=== PATIENT | male | born 1985 | race Caucasian/White ===

== ENCOUNTER 2016-04-27 07:27 | Day surgery (SDC) ==
[2016-03-16 13:47] VITALS: BMI 21.9
[2016-04-27] MEDS ORDERED: VERSED ONE (09:15)
[2016-04-27] MEDS ORDERED: DIPRIVAN 20 ML VIAL IVP ONE (09:15)
[2016-04-27 10:26] VITALS: BP 134/82; TEMP 98
--- NOTE | 2016-04-28 09:10 | OP ---
INDICATIONS FOR PROCEDURE: 30-year-old gentleman presents for colonoscopy. He is having intermittent abdominal cramping and diarrhea. He is scheduled for colonoscopy exam. He does tell me that Bentyl p.r.n. has helped his symptoms. MEDICATIONS: SEE ANESTHESIA NOTES. PROCEDURE: COLONOSCOPY. REPORT: The risks, benefits, alternatives and limitations were discussed in detail with the patient. Informed consent was obtained. After adequate sedation was achieved, a digital rectal exam revealed good tone, no masses. The colonoscope was introduced into the rectum and advanced under direct visual guidance to the cecum. The cecum was identified by the appendiceal orifice and IC valve. I was able to intubate the distal terminal ileum for 12 cm. I then slowly withdrew the scope. The ileal mucosa appeared unremarkable. The colonic mucosa was examined on forward and retroflex views looking on the proximal and distal side of folds and flexures as best as possible. The colonic mucosa was unremarkable its entire length. The prep was good. The withdrawal time was 6 minutes and 42 seconds. The patient tolerated the procedure well with stable vital signs and pulse oximetry throughout. IMPRESSION: 1. Normal colonoscopy including terminal ileum. RECOMMENDATIONS: 1. High fiber diet. 2. Continue p.r.n. Bentyl. 3. I recommend he continue with a healthy lifestyle and what I have discussed with him as a dull, boring routine. 4. Will see him back in the office as needed and he will continue to followup with Primary Care. cc: Dr. Reyna NIXON
== END 2016-04-27 11:30 | disposition home or self-care (01) ==
LOC: SURG 07:27
PROVIDERS: ATTEND Internal Medicine Gastroenterology
DX: R19.7 Diarrhea, unspecified (principal); R10.9 Unspecified abdominal pain

== ENCOUNTER 2016-08-26 11:01 | Emergency (ER) | payer OTHER ==
[2016-08-26 11:07] VITALS: BP 133/92; TEMP 99.4; BMI 22.0
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
== END 2016-08-26 12:12 | disposition home or self-care (01) ==
LOC: ED 11:01
DX: S90.02XA Contusion of left ankle, initial encounter (principal); W22.8XXA Striking against or struck by other objects, initial encounter
CPT/HCPCS: 99283

== ENCOUNTER 2016-11-16 16:07 | Emergency (ER) ==
[2016-11-16 16:24] VITALS: BP 146/87; TEMP 98.1; BMI 21.7
[2016-11-16 17:03] LABS: BASOPHILS # (AUTO) 0.1 K/uL (0-0.2); EOSINOPHILS # (AUTO) 0.1 K/ul (0.0-0.7); EOSINOPHILS % (AUTO) 1.6 % (0.0-7.0); HEMATOCRIT 44.8 % (42.0-52.0); HEMOGLOBIN 15.8 g/dl (14.0-18.0); IMMATURE GRANULOCYTE % (AUTO) 0.2 % (0.0-5.0); LYMPHOCYTES # (AUTO) 1.2 K/uL (0.60-3.4); LYMPHOCYTES % (AUTO) 19.3 (10.0-50.0); MEAN CORPUSCULAR HEMOGLOBIN 31.4 pg (27.0-31.0); MEAN CORPUSCULAR HGB CONC 35.3 (31.8-35.4); MEAN CORPUSCULAR VOLUME 89.1 fl (80.0-94.0); MONOCYTES # (AUTO) 0.8 K/uL (0.4-2.0); MONOCYTES % (AUTO) 12.7 (0-10); NEUTROPHILS % (AUTO) 65.2; PLATELET COUNT 149 10^3/uL (140-440); RED BLOOD COUNT 5.03 10^6/ul (4.70-6.10); WHITE BLOOD COUNT 6.07 K/ul (4.2-10.2)
[2016-11-16] MEDS: NORCO 10-325 PO STA (17:12)
[2016-11-16 17:23] LABS: ALBUMIN 4.4 g/dL (3.4-5.0); ALBUMIN/GLOBULIN RATIO 1.83; BILIRUBIN,TOTAL 1.13 mg/dL (0.00-1.20); BUN/CREATININE RATIO 6.09; CALCIUM 9.8 mg/dL (8.2-10.2); CREATININE 0.82 mg/dL (0.60-1.10); TOTAL PROTEIN 6.8 g/dL (6.4-8.2)
[2016-11-16 17:24] LABS: BILIRUBIN,URINE 1+ (NEGATIVE); KETONES,URINE Trace (NEGATIVE); LEUKOCYTE ESTERASE ,URINE Negative (NEGATIVE); NITRITE,URINE Negative (NEGATIVE); PH,URINE 8.5 (5-9); PROTEIN,URINE 1+ (NEGATIVE); URINE, BLOOD Negative (NEGATIVE)
[2016-11-16 17:27] LABS: ADD URINE MICROSCOPIC YES
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
[2016-11-16 17:30] LABS: BACTERIA,URINE TRACE (NOT PRESENT)
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
[2016-11-16] MEDS ORDERED: NORCO 10-325 PO STA (18:36)
[2016-11-16] MEDS ORDERED: BENADRYL IM STA (18:37)
[2016-11-16] MEDS ORDERED: DECADRON 4 MG/ML SDV IM STA (18:37)
== END 2016-11-16 18:00 | disposition home or self-care (01) ==
LOC: ED 16:07
DX: M54.5 Low back pain (principal); V89.2XXA Person injured in unspecified motor-vehicle accident, traffic, initial encounter
CPT/HCPCS: 36415; 80053; 81001; 85025; 99283

== ENCOUNTER 2017-02-22 10:16 | Emergency (ER) ==
[2017-02-22 10:21] VITALS: BP 141/88; TEMP 98.8; BMI 21.4
--- NOTE | 2017-02-22 10:31 | ED.PDOC ---
General ED Provider: Dr. GWEN YANES JR Chief Complaint: Sore Throat Stated Complaint: woke up with sore throat this am--had nasal sx and head congestion--sl fever--[End]98.8 94 20 141/88 08/18. sudafed--adilsonte Time Seen by Physician: 10:31 Mode of Arrival: Walk-In Information Source: Patient Exam Limitations: No limitations [facility] and Triage Documentation Reviewed and Agree: No Review of Systems - Review Of Systems Constitutional: Reports: Malaise, Weakness Eyes: Reports: No symptoms Ears, Nose, Mouth, Throat: Reports: Throat pain Respiratory: Reports: Cough Cardiac: Reports: No symptoms GI: Reports: No symptoms : Reports: No symptoms Musculoskeletal: Reports: Muscle pain Skin: Reports: No symptoms Neurological: Reports: No symptoms Hematologic/Lymphatic: Reports: Swollen glands All Other Systems: Other Past Medical History - Past Medical History Previously Healthy: Yes Endocrine: Reports: None Cardiovascular: Reports: None Respiratory: Reports: None Hematological: Reports: None Gastrointestinal: Reports: None Genitourinary: Reports: None Neuro/Psych: Reports: Anxiety, Depression Musculoskeletal: Reports: None Cancer: Reports: None - Surgical History General Surgical History: Reports: Orthopedic (knee surg), Unknown (vasectomy) - Family History Family History: Reports: Other (5yr old ill with cough using prednisone 4month old then ill now father of children) - Social History Smoking Status: Former smoker Hx Substance Use: No Alcohol Screening: None Physical Exam - Physical Exam Appearance: Ill-appearing Ill-appearing: Mild Pain Distress: Mild Eyes: SANGITA, EOMI, Conjunctiva clear ENT: Ears normal, Nose normal, Erythema Neck: Supple Respiratory: Airway patent, Breath sounds clear, Breath sounds equal, Respirations nonlabored Cardiovascular: RRR, Pulses normal, No rub, No murmur GI/: Soft, Nontender, No masses, Bowel sounds normal, No Organomegaly Musculoskeletal: Normal strength, ROM intact, No edema, No calf tenderness Skin: Warm, Dry, Normal color Neurological: Sensation intact, Motor intact, Reflexes intact, Cranial nerves intact, Alert, Oriented Psychiatric: Affect appropriate, Mood appropriate Critical Care Note - Critical Care Note Total Time (mins): 0 Course - Course Vital Signs: Temp Pulse Resp BP Pulse Ox 02/22/17 10:16 98.8 F 94 H 20 141/88 H 94 L Departure - Departure Time of Disposition: 11:28 Disposition: HOME SELF-CARE Discharge Problem: Sore throat symptom Instructions: Pharyngitis (ED), Strep Throat (ED) Condition: Good Pt referred to PMD for follow-up: Yes Additional Instructions: Home until no fever for 24 hours expect resolution in two to three days avoid others for first 24 hours of antibiotics then should not be infectious strep test is incomplete return if worsening may use NSAIDS for pain and fever (Naprosyn aleve or Advil) increase fluids Prescriptions: Naproxen [Naprosyn] 500 mg PO Q12HR PRN #30 tablet PRN Reason: PAIN Cephalexin [Keflex] 500 mg PO QID #40 capsule Prednisone 20 mg PO DIRECTED #50 tablet Allergies/Adverse Reactions: Allergies No Known Allergies Allergy (Verified 02/22/17 10:22) Home Medications: Ambulatory Orders Cephalexin [Keflex] 500 mg PO QID #40 capsule 02/22/17 Naproxen [Naprosyn] 500 mg PO Q12HR PRN #30 tablet 02/22/17 Prednisone 20 mg PO DIRECTED #50 tablet 02/22/17
[2017-02-22 11:16] LABS: FLU INTERNAL QC INTERNAL QC VALID; RAPID FLU A NEGATIVE (NEGATIVE); RAPID FLU B NEGATIVE (NEGATIVE)
== END 2017-02-22 11:53 | disposition home or self-care (01) ==
LOC: ED 10:16
DX: J02.9 Acute pharyngitis, unspecified (principal)
CPT/HCPCS: 87651; 87804; 87880; 99283

== ENCOUNTER 2018-04-05 11:10 | Emergency (ER) ==
[2018-04-05 11:15] VITALS: BP 138/82; TEMP 98; BMI 21.1
[2018-04-05] MEDS ORDERED: DUONEB NEB STA (11:29)
[2018-04-05] MEDS ORDERED: DECADRON 4 MG/ML SDV IM STA (11:30)
[2018-04-05] MEDS ORDERED: ZITHROMAX PO STA (11:32)
[2018-04-05] MEDS ORDERED: TUSSIONEX PO STA (11:32)
[2018-04-05] MEDS ORDERED: DECADRON 4 MG/ML SDV ONE (11:50)
--- NOTE | 2018-04-05 12:17 | ED.PDOC ---
General ED Provider: Dr. ELIAS WILSON Chief Complaint: Respiratory Complaint Stated Complaint: FLU LIKE SYMTOMS AND WEAKNESS Time Seen by Physician: 11:17 (FLORENCIA PRESENT AT ALL TIMES LATER SEEN WITH HIS NURSE ) Mode of Arrival: Walk-In Information Source: Patient Exam Limitations: No limitations [facility] Nursing and Triage Documentation Reviewed and Agree: Yes Does patient meet sepsis criteria?: No (SMOKES PRESENTLY ) System Inflammatory Response Syndrome: Not Applicable (NO SHORTNESS OF BREATH ON ARRIVAL) Sepsis Protocol: For patient's 13 years and over: Temp is 96.8 and below OR 101 and greater Pulse >90 BPM Resp >20/minute Acutely Altered Mental Status Are patient's symptoms suggestive of a new infection, such as: -Pneumonia -Skin, Soft Tissue -Endocarditis -UTI -Bone, Joint Infection -Implantable Device -Acute Abdominal Infection -Wound Infection -Meningitis -Blood Stream Catheter Infection -Unknown Respiratory Complaint Exam - Respiratory Complaint/Exam Onset/Duration: 2 DAYS Symptoms Are: Still present (COUGH ) Timing: Intermittent Initial Severity: Mild Current Severity: Mild Location: Nose, Throat, Chest Character: Reports: Non-productive cough, Dry cough Aggravating: Reports: URI Alleviating: Reports: Spontaneous resolution Associated Signs and Symptoms: Reports: Chills, Wheezing, URI, Nasal congestion , Sore throat. Denies: Rapid breathing, Dyspnea, Fever, Chest pain, Pleuritic chest pain, Hemoptysis, Dizziness, Calf pain, Calf swelling, Edema, Hoarseness, Sinus discomfort, Vomiting, Weight loss, Decreased oral intake, Increased thirst , Increased appetite, Increased urination Related Surgical History: Reports: None Pulmonary Embolism Risk Factors: Smoking Cardiac Risk Factors: Reports: Smoking Tuberculosis Risk Factors: Reports: None Status Asthmaticus Risk Factors: Reports: None Home Oxygen Use: No Recent Stress Test: No Recent Echo/LV Function: No Current Antibiotic Use: No Current Asthma Medication Use: No Respiratory Distress: None Inadequate Respiratory Effort: No Dysphagia Present: No Stridor Present: No JVD Present: No Accessory Muscle Use: No Retractions: Not Present Diminished Breath Sounds: No Sinus Tenderness: None Grunting Respirations: No Kussmaul Respirations: No Differential Diagnoses: Pneumonia, Bronchitis, URI, Influenza Non-Traumatic Chest Pain Syncope: EKG Performed Review of Systems - Review Of Systems Constitutional: Reports: Chills, Malaise, Weakness Eyes: Reports: No symptoms Ears, Nose, Mouth, Throat: Reports: No symptoms Respiratory: Reports: Cough, Wheezing Cardiac: Reports: No symptoms GI: Reports: No symptoms : Reports: No symptoms Musculoskeletal: Reports: No symptoms Skin: Reports: No symptoms Neurological: Reports: No symptoms Endocrine: Reports: No symptoms Hematologic/Lymphatic: Reports: No symptoms All Other Systems: Reviewed and Negative Past Medical History - Past Medical History Previously Healthy: Yes Endocrine: Reports: None Cardiovascular: Reports: None Respiratory: Reports: None Hematological: Reports: None Gastrointestinal: Reports: None Genitourinary: Reports: None Neuro/Psych: Reports: Anxiety, Depression Musculoskeletal: Reports: None Cancer: Reports: None - Surgical History General Surgical History: Reports: Orthopedic (knee surg), Unknown (vasectomy) - Family History Family History: Reports: Other (7yr old ill with cough using prednisone 4month old then ill now father of children) - Social History Smoking Status: Current every day smoker Hx Substance Use: No Alcohol Screening: None Physical Exam - Physical Exam Appearance: Well-appearing, No pain distress, Well-nourished Eyes: SANGITA, EOMI, Conjunctiva clear ENT: Ears normal, Nose normal, Oropharynx normal Respiratory: Airway patent, Breath sounds clear, Breath sounds equal, Respirations nonlabored Cardiovascular: RRR, Pulses normal, No rub, No murmur GI/: Soft, Nontender, No masses, Bowel sounds normal, No Organomegaly Musculoskeletal: Normal strength, ROM intact, No edema, No calf tenderness Skin: Warm, Dry, Normal color Neurological: Sensation intact, Motor intact, Reflexes intact, Cranial nerves intact, Alert, Oriented Psychiatric: Affect appropriate, Mood appropriate Re-Evaluation - Re-Evaluation Time of Re-Evaluation: 12:17 (NO RESPIRATORY DISTRESS NO CHEST PAIN NO NEUROLOGICAL DEFICITS) Status: Improved Vital Signs Stable: Yes Pain Level: 0 Appearance: NAD Lungs: Clear Skin: Warm and Dry Neuro: Alert and Oriented X3 CV: RRR - Re-Evaluation Time of Re-Evaluation: 12:57 (LAB REPORTS GIVEN TO THE PT WITH LUDA PRESENT DISCUSSED ALL LABS COPIES GIVEN ) Status: Improved Vital Signs Stable: Yes Pain Level: 0 Appearance: NAD Skin: Warm and Dry Neuro: Alert and Oriented X3 CV: RRR Critical Care Note - Critical Care Note Total Time (mins): 0 Course - Course Hematology/Chemistry: 04/05/18 11:40 04/05/18 11:40 Orders, Labs, Meds: Lab Review 04/05/18 04/05/18 04/05/18 11:31 11:40 11:40 WBC 7.65 RBC 5.19 Hgb 16.5 Hct 47.4 MCV 91.3 MCH 31.8 H MCHC 34.8 RDW Coeff of Emiliano 12.6 Plt Count 193 Immature Gran % (Auto) 0.1 Neut % (Auto) 57.1 Lymph % (Auto) 31.4 [place] % (Auto) 7.8 Eos % (Auto) 2.6 Baso % (Auto) 1.0 Immature Gran # (Auto) 0.0 Neut # (Auto) 4.4 Lymph # (Auto) 2.4 [place] # (Auto) 0.6 Eos # (Auto) 0.2 Baso # (Auto) 0.1 Puncture Site Lrad O2 Saturation 96.0 ABG pH 7.350 ABG pCO2 37.7 ABG pO2 89.0 ABG HCO3 20.8 L ABG Total CO2 22 ABG Base Excess -5 L Justice Test + FiO2 % 21.0 Sodium 142.2 Potassium 3.90 Chloride 110.4 H Carbon Dioxide 21.4 L Anion Gap 14.30 BUN 5.8 L Creatinine 0.63 Estimated GFR (MDRD) 150.00 BUN/Creatinine Ratio 9.20 Glucose 95.7 Lactic Acid Calcium 8.80 Total Bilirubin 0.42 AST 85.2 H ALT 53.8 H Alkaline Phosphatase 55.8 Total Protein 7.52 Albumin 4.69 Globulin 2.83 Albumin/Globulin Ratio 1.65 Procalcitonin 04/05/18 04/05/18 11:40 11:40 WBC RBC Hgb Hct MCV MCH MCHC RDW Coeff of Emiliano Plt Count Immature Gran % (Auto) Neut % (Auto) Lymph % (Auto) [place] % (Auto) Eos % (Auto) Baso % (Auto) Immature Gran # (Auto) Neut # (Auto) Lymph # (Auto) [place] # (Auto) Eos # (Auto) Baso # (Auto) Puncture Site O2 Saturation ABG pH ABG pCO2 ABG pO2 ABG HCO3 ABG Total CO2 ABG Base Excess Justice Test FiO2 % Sodium Potassium Chloride Carbon Dioxide Anion Gap BUN Creatinine Estimated GFR (MDRD) BUN/Creatinine Ratio Glucose Lactic Acid 2.76 H Calcium Total Bilirubin AST ALT Alkaline Phosphatase Total Protein Albumin Globulin Albumin/Globulin Ratio Procalcitonin < 0.05 Orders Category Date Time Status ABG DRAW REQUEST Stat CARDIO 04/05/18 11:31 Completed EKG-(ED ONLY) Stat CARDIO 04/05/18 11:30 Completed NEBULIZER TREATMENT Stat CARDIO 04/05/18 11:29 Completed ABG Stat LAB 04/05/18 11:31 Completed BLOOD CULTURE (ED ONLY) Stat LAB 04/05/18 11:40 Received CBC W/ AUTO DIFF Stat LAB 04/05/18 11:40 Completed COMPREHENSIVE METABOLIC PANEL Stat LAB 04/05/18 11:40 Completed HEPATITIS PANEL, ACUTE Stat LAB 04/05/18 11:40 Received LACTIC ACID Stat LAB 04/05/18 11:40 Completed PROCALCITONIN Stat LAB 04/05/18 11:40 Completed Azithromycin [Zithromax] MEDS 04/05/18 11:32 Discontinued 1,000 mg PO ONCE STA Ceftriaxone Sodium [Rocephin] MEDS 04/05/18 12:19 Discontinued 1 gm IM ONCE STA Dexamethasone 4 mg/ml Inj [Decadron 4 mg/ml Sdv] MEDS 04/05/18 11:50 Discontinued 4 mg .ROUTE .STK-MED ONE Dexamethasone 4 mg/ml Inj [Decadron 4 mg/ml Sdv] MEDS 04/05/18 11:30 Discontinued 8 mg IM ONCE STA Hydrocodone/Chlorphen Polis [Tussionex] MEDS 04/05/18 11:32 Discontinued 5 ml PO ONCE STA Ipratropium/Albuterol Neb [Duoneb] MEDS 04/05/18 11:29 Discontinued 1 vial NEB ONCE STA Lidocaine HCl/Pf [Lidocaine HCl 1% Sdv] MEDS 04/05/18 12:19 Discontinued 2.1 ml IM ONCE STA CHEST, 2 VIEWS PA & LAT Stat RADS 04/05/18 11:28 Completed Medications Discontinued Medications Generic Name Dose Route Start Last Admin Trade Name Freq PRN Reason Stop Dose Admin Albuterol/Ipratropium 1 vial 04/05/18 11:29 04/05/18 11:40 Duoneb NEB 04/05/18 11:30 1 vial ONCE STA Administration Azithromycin 1,000 mg 04/05/18 11:32 04/05/18 11:48 Zithromax PO 04/05/18 11:33 1,000 mg ONCE STA Administration Ceftriaxone Sodium 1 gm 04/05/18 12:19 04/05/18 12:47 Rocephin IM 04/05/18 12:20 1 gm ONCE STA Administration Chlorphenir/Hydrocodone Polistirex 5 ml 04/05/18 11:32 04/05/18 11:48 Tussionex PO 04/05/18 11:33 5 ml ONCE STA Administration Dexamethasone Sodium Phosphate 8 mg 04/05/18 11:30 04/05/18 11:48 Decadron 4 Mg/Ml Sdv IM 04/05/18 11:31 8 mg ONCE STA Administration Lidocaine HCl 2.1 ml 04/05/18 12:19 04/05/18 12:48 Lidocaine Hcl 1% Sdv IM 04/05/18 12:20 2.1 ml ONCE STA Administration Vital Signs: Temp Pulse Resp BP Pulse Ox 04/05/18 11:12 98.0 F 112 H 20 138/82 98 Departure - Departure Time of Disposition: 13:00 Disposition: HOME SELF-CARE Discharge Problem: Viral syndrome, Upper respiratory infection with cough and congestion Instructions: Viral Syndrome (ED) Condition: Good Pt referred to PMD for follow-up: Yes IPMP verified?: No Additional Instructions: Please call your Family Physician as soon as possible to schedule a follow-up appointment. YOUR LIVER ENZYMES ARE SLIGHTLY ELEVATED , PLEASE HAVE THEM RECHECKED BY YOUR DOCTOR. A HEPATITIS PANEL TEST IS DONE WELL BUT, THE RESULTS WONT BE AVILABLE FOR 4 DAYS PLEASE ASK YOUR PROVIDER TO CHECK THE ACUTE HEPATITIS PANEL RESULTS THROUGH [facility]. DEPT Allergies/Adverse Reactions: Allergies No Known Allergies Allergy (Verified 02/22/17 10:22) Home Medications: Ambulatory Orders 1 [No Reported Medications] 04/05/18 Disposition Discussed With: Patient, Family
[2018-04-05] MEDS ORDERED: LIDOCAINE HCL 1% SDV IM STA (12:19)
[2018-04-05] MEDS ORDERED: ROCEPHIN IM STA (12:19)
--- NOTE | 2018-04-05 12:20 | DI ---
EXAM: Chest two view, frontal and lateral views. HISTORY: Cough. COMPARISON: 03/16/2016. FINDINGS: The heart size is normal. There is no pulmonary vascular congestion. The lungs are clear . No pleural effusion or pneumothorax is seen. No acute osseous abnormality identified. Since the prior study, there has been no significant interval change. IMPRESSION: No acute cardiopulmonary process.
== END 2018-04-05 13:00 | disposition home or self-care (01) ==
LOC: ED 11:10
DX: J06.9 Acute upper respiratory infection, unspecified (principal); R74.8 Abnormal levels of other serum enzymes; F17.210 Nicotine dependence, cigarettes, uncomplicated
CPT/HCPCS: 36415; 80053; 80074; 82803; 83605; 84145; 85025; 87040; 93005; 93010; 94640; 96372; 99283

== ENCOUNTER 2018-04-05 20:40 | Emergency (ER) ==
[2018-04-05 20:50] VITALS: BMI 20.9
[2018-04-05] MEDS ORDERED: LACTATED RINGERS 1,000 ML IV STA (21:07)
--- NOTE | 2018-04-05 21:38 | ED.PDOC ---
General ED Provider: Dr. HUMAIRA JOHNSON Chief Complaint: Chest Pain Stated Complaint: was seen today for complaint of cough. Diagnosed witih Viral syndrome x ray was negative. returns not feeling well with chest pain mostly with cough and palpitation. Also reports body aches, Nausea but no vomiting. Time Seen by Physician: 21:00 Information Source: Patient Exam Limitations: No limitations Primary Care Provider: SILAS DURAN Seen Within Last 72 Hours for Same Complaint By: ED (for viral syndrome. ) Nursing and Triage Documentation Reviewed and Agree: Yes Does patient meet sepsis criteria?: Yes If yes, has appropriate treatment been initiated?: Yes System Inflammatory Response Syndrome: Pulse >90 BPM, Resp >20/Minute Sepsis Protocol: For patient's 13 years and over: Temp is 96.8 and below OR 101 and greater Pulse >90 BPM Resp >20/minute Acutely Altered Mental Status Are patient's symptoms suggestive of a new infection, such as: -Pneumonia -Skin, Soft Tissue -Endocarditis -UTI -Bone, Joint Infection -Implantable Device -Acute Abdominal Infection -Wound Infection -Meningitis -Blood Stream Catheter Infection -Unknown Review of Systems - Review Of Systems Constitutional: Reports: Weakness Eyes: Reports: No symptoms Ears, Nose, Mouth, Throat: Reports: No symptoms Respiratory: Reports: Cough Cardiac: Reports: Chest pain, Palpitations GI: Reports: No symptoms : Reports: No symptoms Musculoskeletal: Reports: No symptoms Skin: Reports: No symptoms Neurological: Reports: Anxiety Endocrine: Reports: No symptoms Hematologic/Lymphatic: Reports: No symptoms All Other Systems: Reviewed and Negative Past Medical History - Past Medical History Previously Healthy: Yes Endocrine: Reports: None Cardiovascular: Reports: None Respiratory: Reports: None Hematological: Reports: None Gastrointestinal: Reports: None Genitourinary: Reports: None Neuro/Psych: Reports: Anxiety, Depression Musculoskeletal: Reports: None Cancer: Reports: None - Surgical History General Surgical History: Reports: Orthopedic (knee surg), Unknown (vasectomy) - Family History Family History: Reports: Other (7yr old ill with cough using prednisone 4month old then ill now father of children) - Social History Smoking Status: Current every day smoker Hx Substance Use: No Alcohol Screening: None - Immunizations Tetanus Shot up to Date: Yes Physical Exam - Physical Exam Appearance: Ill-appearing Eyes: SANGITA, EOMI, Conjunctiva clear ENT: Ears normal, Nose normal, Oropharynx normal Respiratory: Airway patent, Breath sounds clear, Breath sounds equal, Respirations nonlabored Cardiovascular: No rub, No murmur, Tachycardia GI/: Soft, Nontender, No masses, Bowel sounds normal, No Organomegaly Musculoskeletal: Normal strength, ROM intact, No edema, No calf tenderness Skin: Warm, Dry, Normal color Neurological: Sensation intact, Motor intact, Reflexes intact, Cranial nerves intact, Alert, Oriented Psychiatric: Anxious Interpretation - Radiology Interpretation Radiology Interpretation By: Radiologist Exam Interpreted: CT Scan - Caddie Rate: Tachy Rhythm: Sinus - EKG Interpretation Rate: Tachy Rhythm: Sinus Ectopy: None Sasabe: NL ST Segment: Normal Interpretation: Sinus tachycardia Physician Notification - Case Discussed Physician Notified: Dr. Ordaz Time of Notification: 00:22 (accepted to ICU) Critical Care Note - Critical Care Note Total Time (mins): 45 Comments: Lactic acid noted to be elevated Discussed need for transfer to higher level of care. Course - Course Hematology/Chemistry: 04/05/18 21:22 04/05/18 21:22 Orders, Labs, Meds: Lab Review 04/05/18 04/05/18 04/05/18 21:10 21:15 21:22 WBC 5.42 RBC 5.10 Hgb 16.4 Hct 46.8 MCV 91.8 MCH 32.2 H MCHC 35.0 RDW Coeff of Emiliano 12.8 Plt Count 231 Neutrophils % (Manual) 82.0 H Lymphocytes % (Manual) 15.0 Reactive Lymphocytes 3.0 Anisocytosis Not present Sodium Potassium Chloride Carbon Dioxide Anion Gap BUN Creatinine Estimated GFR (MDRD) BUN/Creatinine Ratio Glucose Lactic Acid Calcium Total Bilirubin AST ALT Alkaline Phosphatase Total Creatine Kinase 507.5 H CK-MB (CK-2) 4.200 H CK-MB (CK-2) % 0.8200 Troponin I < 0.012 Total Protein Albumin Globulin Albumin/Globulin Ratio Procalcitonin Urine Color Urine Clarity Urine pH Ur Specific [place] Urine Protein Urine Glucose (UA) Urine Ketones Urine Blood Urine Nitrite Urine Bilirubin Urine Urobilinogen Ur Leukocyte Esterase Urine Microscopic RBC Ur Squamous Epith Cells Urine Mucus Influ A Molecular Assay Negative by naat Influ B Molecular Assay Negative by naat 04/05/18 04/05/18 04/05/18 21:22 21:22 21:22 WBC RBC Hgb Hct MCV MCH MCHC RDW Coeff of Emiliano Plt Count Neutrophils % (Manual) Lymphocytes % (Manual) Reactive Lymphocytes Anisocytosis Sodium 145.6 H Potassium 4.19 Chloride 111.5 H Carbon Dioxide 16.1 L Anion Gap 22.19 BUN 10.8 Creatinine 0.94 Estimated GFR (MDRD) 94.00 BUN/Creatinine Ratio 11.48 Glucose 129.2 H Lactic Acid 6.96 H Calcium 9.20 Total Bilirubin 0.21 AST 93.3 H ALT 54.6 H Alkaline Phosphatase 56.0 Total Creatine Kinase CK-MB (CK-2) CK-MB (CK-2) % Troponin I Total Protein 7.82 Albumin 4.93 Globulin 2.89 Albumin/Globulin Ratio 1.70 Procalcitonin < 0.05 Urine Color Urine Clarity Urine pH Ur Specific [place] Urine Protein Urine Glucose (UA) Urine Ketones Urine Blood Urine Nitrite Urine Bilirubin Urine Urobilinogen Ur Leukocyte Esterase Urine Microscopic RBC Ur Squamous Epith Cells Urine Mucus Influ A Molecular Assay Influ B Molecular Assay 04/05/18 23:05 WBC RBC Hgb Hct MCV MCH MCHC RDW Coeff of Emiliano Plt Count Neutrophils % (Manual) Lymphocytes % (Manual) Reactive Lymphocytes Anisocytosis Sodium Potassium Chloride Carbon Dioxide Anion Gap BUN Creatinine Estimated GFR (MDRD) BUN/Creatinine Ratio Glucose Lactic Acid Calcium Total Bilirubin AST ALT Alkaline Phosphatase Total Creatine Kinase CK-MB (CK-2) CK-MB (CK-2) % Troponin I Total Protein Albumin Globulin Albumin/Globulin Ratio Procalcitonin Urine Color Yellow Urine Clarity Clear Urine pH 5.5 Ur Specific [place] 1.025 Urine Protein Trace Urine Glucose (UA) Trace Urine Ketones 1+ Urine Blood Negative Urine Nitrite Negative Urine Bilirubin Negative Urine Urobilinogen 1.0 Ur Leukocyte Esterase Negative Urine Microscopic RBC 0-2 Ur Squamous Epith Cells Not present Urine Mucus Trace Influ A Molecular Assay Influ B Molecular Assay Orders Category Date Time Status ED APPLY O2 .ONCE EMERGENCY 04/05/18 21:07 Active ED IV/MEDIPORT/POWERPORT .ONCE EMERGENCY 04/05/18 21:07 Active ED VITAL SIGNS Q1HR EMERGENCY 04/05/18 21:07 Active BLOOD CULTURE (ED ONLY) Stat LAB 04/05/18 21:15 Results CBC W/ AUTO DIFF Stat LAB 04/05/18 21:22 Completed COMPREHENSIVE METABOLIC PANEL Stat LAB 04/05/18 21:22 Completed CREATINE KINASE Stat LAB 04/05/18 21:15 Completed FLU A/B MOLECULAR Stat LAB 04/05/18 21:10 Completed LACTIC ACID Stat LAB 04/05/18 21:22 Completed MANUAL DIFFERENTIAL Stat LAB 04/05/18 21:22 Completed MOLECULAR GROUP A STREP Stat LAB 04/05/18 21:05 Completed PROCALCITONIN Stat LAB 04/05/18 21:22 Completed TROPONIN I Stat LAB 04/05/18 21:15 Completed URINALYSIS C & S IF INDICATED Stat LAB 04/05/18 23:05 Completed 0.9 % Sodium Chloride [Saline Flush] MEDS 04/05/18 21:07 Discontinued 1 syr IVF PRN PRN Piperacillin Sodium/Tazobactam [Zosyn 3.375 gm] 3.375 MEDS 04/05/18 22:53 Discontinued gm 0.9 % Sodium Chloride [Sodium Chloride] 50 ml IV ONCE Ringers Lactated Solution [Lactated Ringers] 1,000 ml MEDS 04/05/18 21:07 Discontinued IV 100 mls/hr CT ABDOMEN/PELVIS WO CONTRAST Stat RADS 04/05/18 22:[address] CHEST W/O CONTRAST Stat RADS 04/05/18 22:55 Completed Medications Discontinued Medications Generic Name Dose Route Start Last Admin Trade Name Freq PRN Reason Stop Dose Admin Lactated Ringer's 1,000 mls @ 100 mls/hr 04/05/18 21:07 04/05/18 21:31 Lactated Ringers IV 04/06/18 07:06 100 mls/hr .Q10H STA Administration Piperacillin Sod/Tazobactam 50 mls @ 50 mls/hr 04/05/18 22:53 04/05/18 23:32 Sod 3.375 gm/ Sodium Chloride IV 04/05/18 23:52 50 mls/hr ONCE STA Administration Sodium Chloride 1 syr 04/05/18 21:07 04/05/18 21:31 Saline Flush IVF 1 syr PRN PRN Administration To flush IV Vital Signs: Temp Pulse Resp BP Pulse Ox 04/06/18 00:25 98.5 F 105 H 18 147/76 H 95 04/05/18 23:37 103 H 23 131/73 94 L 04/05/18 22:10 117 H 18 140/74 97 04/05/18 21:52 120 H 21 124/65 04/05/18 21:33 122 H 19 136/77 04/05/18 20:50 144 H 20 156/92 H 96 04/05/18 20:42 98.7 F 164 H 20 128/79 96 ERICA Risk Score Age >/= 65: No >/= 3 CAD Risk Factors: No Known CAD (Stenosis >/= 50%): No ASA Use in Past 7 Days: No Severe Angina (>/= 2 episodes in 24 hours): No EKG ST Changes >/= 0.5mm: No Postive Cardiac Marker: No ERICA Total Score: 0 ERICA Risk Score: Risk Score Odds of by 30D 0 0.1 (0.1-0.2) 1 0.3 (0.2-0.3) 2 0.4 (0.3-0.5) 3 0.7 (0.6-0.9) 4 1.2 (1.0-1.5) 5 2.2 (1.9-2.6) 6 3.0 (2.5-3.6) 7 4.8 (3.8-6.1) Departure - Departure Time of Disposition: 00:47 Disposition: TSF SHORT-TRM HOSP Discharge Problem: Sepsis due to undetermined organism, Acidosis, lactic Condition: Fair Pt referred to PMD for follow-up: No IPMP verified?: No Allergies/Adverse Reactions: Allergies No Known Allergies Allergy (Verified 04/05/18 23:36) Home Medications: Ambulatory Orders 1 [No Reported Medications] 04/05/18 Disposition Discussed With: Patient, Family
[2018-04-05] MEDS ORDERED: ZOSYN 3.375 GM 3.375 GM in SODIUM CHLORIDE 50 ML IV STA (22:53)
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
[2018-04-06 00:25] VITALS: BP 147/76; TEMP 98.5
== END 2018-04-06 01:00 | disposition short-term general hospital (02) ==
LOC: ED 20:40
DX: A41.9 Sepsis, unspecified organism (principal); E87.2 Acidosis; R07.9 Chest pain, unspecified; F17.210 Nicotine dependence, cigarettes, uncomplicated
CPT/HCPCS: 36415; 80053; 81001; 82550; 82553; 83605; 84145; 84484; 85007; 85025; 87040; 87502; 87651; 96361; 96365; 99285

== ENCOUNTER 2018-04-12 10:20 | Outpatient (CLI) | END 2018-04-12 10:21 | disposition home or self-care (01) | LOC: FCC-LAB 10:20 | PROVIDERS: ATTEND Family Medicine | DX: R79.89 Other specified abnormal findings of blood chemistry (principal) | CPT/HCPCS: 36415; 84480 ==

== ENCOUNTER 2018-06-15 10:28 | Outpatient (CLI) | END 2018-06-15 10:29 | disposition home or self-care (01) | LOC: RHC-LAB 10:28 | PROVIDERS: ATTEND Nurse Practitioner Family | DX: J02.9 Acute pharyngitis, unspecified (principal) | CPT/HCPCS: 87651 ==

== ENCOUNTER 2018-11-05 23:47 | Emergency (ER) | payer OTHER ==
[2018-11-05 23:55] VITALS: BP 125/82; TEMP 98.4
[2018-11-06 00:01] VITALS: BMI 21.7
--- NOTE | 2018-11-06 01:07 | ED.PDOC ---
General ED Provider: Dr. HUMAIRA JOHNSON Chief Complaint: Medical Screening Exam Stated Complaint: Brought by PD after he passed the PD at 73 on a 55. When stopped he was noted to be intoxicated and Breatherliser was 3 +. States he has been depressed and has been using alcohol at night to help him sleep. Denies being suicidal. Time Seen by Physician: 23:55 Mode of Arrival: Police Information Source: Patient, Police Nursing and Triage Documentation Reviewed and Agree: Yes Does patient meet sepsis criteria?: No System Inflammatory Response Syndrome: Not Applicable Sepsis Protocol: For patient's 13 years and over: Temp is 96.8 and below OR 101 and greater Pulse >90 BPM Resp >20/minute Acutely Altered Mental Status Are patient's symptoms suggestive of a new infection, such as: -Pneumonia -Skin, Soft Tissue -Endocarditis -UTI -Bone, Joint Infection -Implantable Device -Acute Abdominal Infection -Wound Infection -Meningitis -Blood Stream Catheter Infection -Unknown Review of Systems - Review Of Systems Constitutional: Reports: Loss of appetite Eyes: Reports: No symptoms Ears, Nose, Mouth, Throat: Reports: No symptoms Respiratory: Reports: No symptoms Cardiac: Reports: Other (Epigastic pain/ reflux ) GI: Reports: No symptoms : Reports: No symptoms Musculoskeletal: Reports: No symptoms Skin: Reports: No symptoms Neurological: Reports: Anxiety, Depressed Endocrine: Reports: No symptoms Hematologic/Lymphatic: Reports: No symptoms All Other Systems: Reviewed and Negative Past Medical History - Past Medical History Previously Healthy: Yes Endocrine: Reports: None Cardiovascular: Reports: None Respiratory: Reports: None Hematological: Reports: None Gastrointestinal: Reports: None Genitourinary: Reports: None Neuro/Psych: Reports: Anxiety, Depression Musculoskeletal: Reports: None Cancer: Reports: None - Surgical History General Surgical History: Reports: Orthopedic (knee surg), Unknown (vasectomy) - Family History Family History: Reports: Other (5yr old ill with cough using prednisone 4month old then ill now father of children) - Social History Smoking Status: Current every day smoker Hx Substance Use: Yes Alcohol Screening: Heavy - Immunizations Tetanus Shot up to Date: Yes Physical Exam - Physical Exam Appearance: Ill-appearing (Intoxicated, ETOH aroma ) Ill-appearing: Moderate Eyes: SANGITA, EOMI, Conjunctiva clear Neck: Supple Respiratory: Airway patent, Breath sounds clear, Breath sounds equal, Respirations nonlabored Cardiovascular: Tachycardia GI/: Soft, Nontender Musculoskeletal: Normal strength, ROM intact, No edema, No calf tenderness Skin: Warm, Dry, Normal color Neurological: Alert, Oriented Psychiatric: Anxious, Depressed Critical Care Note - Critical Care Note Total Time (mins): 45 Course - Course Hematology/Chemistry: 11/06/18 00:20 11/06/18 00:20 Orders, Labs, Meds: Lab Review 11/06/18 11/06/18 11/06/18 00:20 00:20 00:40 WBC 5.10 RBC 5.13 Hgb 16.3 Hct 46.4 MCV 90.4 MCH 31.8 H MCHC 35.1 RDW Coeff of Emiliano 13.1 Plt Count 154 Immature Gran % (Auto) 0.0 Neut % (Auto) 42.5 Lymph % (Auto) 41.8 Sunflower % (Auto) 9.8 Eos % (Auto) 5.1 Baso % (Auto) 0.8 Immature Gran # (Auto) 0.0 Neut # (Auto) 2.2 Lymph # (Auto) 2.1 Sunflower # (Auto) 0.5 Eos # (Auto) 0.3 Baso # (Auto) 0.0 Sodium 146.8 H Potassium 3.71 Chloride 109.3 H Carbon Dioxide 20.6 L Anion Gap 20.61 BUN 6.4 L Creatinine 0.74 Estimated GFR (MDRD) 124.00 BUN/Creatinine Ratio 8.64 Glucose 111.5 H Calcium 8.90 Total Bilirubin 0.27 AST 279.9 H ALT 254.6 H Alkaline Phosphatase 67.7 Total Protein 7.65 Albumin 4.88 Globulin 2.77 Albumin/Globulin Ratio 1.76 TSH 0.823 Urine Color Urine Clarity Urine pH Ur Specific [place] Urine Protein Urine Glucose (UA) Urine Ketones Urine Blood Urine Nitrite Urine Bilirubin Urine Urobilinogen Ur Leukocyte Esterase Salicylate Level mg/dL < 1.00 Urine Opiates Screen Negative Ur Oxycodone Screen Negative Urine Methadone Screen Negative Ur Propoxyphene Screen Negative Acetaminophen < 10.0 L Ur Barbiturates Screen Negative U Tricyclic Antidepress Positive Ur Phencyclidine Scrn Negative Ur Amphetamine Screen Negative U Methamphetamines Scrn Negative U Benzodiazepines Scrn Negative Urine Cocaine Screen Negative U Cannabinoids Screen Negative Plasma/Serum Alcohol 338.7 H 11/06/18 00:40 WBC RBC Hgb Hct MCV MCH MCHC RDW Coeff of Emiliano Plt Count Immature Gran % (Auto) Neut % (Auto) Lymph % (Auto) Sunflower % (Auto) Eos % (Auto) Baso % (Auto) Immature Gran # (Auto) Neut # (Auto) Lymph # (Auto) [place]flower # (Auto) Eos # (Auto) Baso # (Auto) Sodium Potassium Chloride Carbon Dioxide Anion Gap BUN Creatinine Estimated GFR (MDRD) BUN/Creatinine Ratio Glucose Calcium Total Bilirubin AST ALT Alkaline Phosphatase Total Protein Albumin Globulin Albumin/Globulin Ratio TSH Urine Color Yellow Urine Clarity Clear Urine pH 6.0 Ur Specific [place] 1.010 Urine Protein Negative Urine Glucose (UA) Negative Urine Ketones Negative Urine Blood Negative Urine Nitrite Negative Urine Bilirubin Negative Urine Urobilinogen 0.2 Ur Leukocyte Esterase Negative Salicylate Level mg/dL Urine Opiates Screen Ur Oxycodone Screen Urine Methadone Screen Ur Propoxyphene Screen Acetaminophen Ur Barbiturates Screen U Tricyclic Antidepress Ur Phencyclidine Scrn Ur Amphetamine Screen U Methamphetamines Scrn U Benzodiazepines Scrn Urine Cocaine Screen U Cannabinoids Screen Plasma/Serum Alcohol Orders Category Date Time Status ED IV/MEDIPORT/POWERPORT .ONCE EMERGENCY 11/06/18 01:01 Active ACETAMINOPHEN Stat LAB 11/06/18 00:20 Completed BLOOD ALCOHOL Stat LAB 11/06/18 00:20 Completed CBC W/ AUTO DIFF Stat LAB 11/06/18 00:20 Completed COMPREHENSIVE METABOLIC PANEL Stat LAB 11/06/18 00:20 Completed DRUG SCREEN, URINE, RAPID Stat LAB 11/06/18 00:40 Completed SALICYLATE Stat LAB 11/06/18 00:20 Completed THYROID STIMULATING HORMONE Stat LAB 11/06/18 00:20 Completed URINALYSIS C & S IF INDICATED Stat LAB 11/06/18 00:40 Completed 0.9 % Sodium Chloride [Saline Flush] MEDS 11/06/18 01:01 Discontinued 1 syr IVF PRN PRN Ondansetron HCl/Pf [Zofran 4 mg/2 ml] MEDS 11/06/18 01:10 Discontinued 4 mg IVP ONCE STA Pantoprazole Sodium [Protonix IV] MEDS 11/06/18 01:10 Discontinued 80 mg IVP ONCE STA Ringers Lactated Solution [Lactated Ringers] 1,000 ml MEDS 11/06/18 01:01 Discontinued IV BOLUS Vitamin B-1 Inj [Thiamine] MEDS 11/06/18 01:30 Discontinued 100 mg IVP DAILY Vitamin B-1 Inj [Thiamine] MEDS 11/06/18 01:10 Discontinued 100 mg IVP ONCE STA Medications Discontinued Medications Generic Name Dose Route Start Last Admin Trade Name Qamarq PRN Reason Stop Dose Admin Lactated Ringer's 1,000 mls @ 2,000 mls/hr 11/06/18 01:01 11/06/18 01:25 Lactated Ringers IV 11/06/18 01:30 1,200 mls/hr BOLUS STA Administration Ondansetron HCl 4 mg 11/06/18 01:10 11/06/18 01:31 Zofran 4 Mg/2 Ml IVP 11/06/18 01:11 4 mg ONCE STA Administration Pantoprazole Sodium 80 mg 11/06/18 01:10 11/06/18 01:33 Protonix Iv IVP 11/06/18 01:11 80 mg ONCE STA Administration Sodium Chloride 1 syr 11/06/18 01:01 11/06/18 01:39 Saline Flush IVF 1 syr PRN PRN Administration To flush IV Thiamine HCl 100 mg 11/06/18 01:30 Thiamine IVP DAILY JUVENAL Thiamine HCl 100 mg 11/06/18 01:10 11/06/18 01:29 Thiamine IVP 11/06/18 01:11 100 mg ONCE STA Administration Vital Signs: Temp Pulse Resp BP Pulse Ox 11/05/18 23:48 98.4 F 117 H 20 125/82 96 Departure - Departure Time of Disposition: 05:40 Disposition: HOME SELF-CARE Discharge Problem: Alcohol intoxication, Depression, Elevated liver function tests Instructions: Depression (ED), Alcohol Intoxication (ED), Abuse of Alcohol (ED) Condition: Good Pt referred to PMD for follow-up: Yes IPMP verified?: No Additional Instructions: STOP DRINKING ALCOHOL FOLLOW UP WITH YOUR COUNSELLOR IN 1-2 DAYS Allergies/Adverse Reactions: Allergies No Known Allergies Allergy (Uncoded 11/05/18 23:55) Home Medications: Ambulatory Orders Quetiapine Fumarate [Seroquel] 200 mg PO BEDTIME 10/24/18 Ondansetron [Zofran Odt] 8 mg PO Q8H PRN 11/05/18 Disposition Discussed With: Patient Discharge Problem: Alcohol intoxication Qualifiers: Complication of substance-induced condition: uncomplicated Qualified Code(s): F10.920 - Alcohol use, unspecified with intoxication, uncomplicated Depression Qualifiers: Depression Type: major depressive disorder Major depression recurrence: recurrent Active/Remission status: currently active Major depression episode severity: severe Psychotic features: without psychotic features Qualified Code(s ): F33.2 - Major depressive disorder, recurrent severe without psychotic features
[2018-11-06] MEDS ORDERED: THIAMINE IVP STA (01:10)
[2018-11-06] MEDS ORDERED: PROTONIX IV IVP STA (01:10)
[2018-11-06] MEDS ORDERED: ZOFRAN 4 MG/2 ML IVP STA (01:10)
[2018-11-06] MEDS ORDERED: LACTATED RINGERS 1,000 ML IV STA ×2 (01:20→02:15)
[2018-11-06] MEDS: LACTATED RINGERS 1,000 ML IV STA (01:25)
[2018-11-06] MEDS ORDERED: THIAMINE IVP SCH (01:30)
[2018-11-07] MEDS: LACTATED RINGERS 1,000 ML IV STA (10:04)
== END 2018-11-06 05:40 | disposition home or self-care (01) ==
LOC: ED 23:47
DX: F10.920 Alcohol use, unspecified with intoxication, uncomplicated (principal); F33.2 Major depressive disorder, recurrent severe without psychotic features; R79.89 Other specified abnormal findings of blood chemistry; R10.13 Epigastric pain; F17.210 Nicotine dependence, cigarettes, uncomplicated
CPT/HCPCS: 36415; 80053; 80306; 80307; 81001; 84443; 85025; 96361; 96374; 96375; 99283

== ENCOUNTER 2021-12-04 12:26 | Inpatient (IN) ==
--- NOTE | 2021-12-04 12:37 | ED.PDOC ---
General ED Provider: Dr. GWEN RIVAS MD Chief Complaint: Alcohol/Substance Withdrawal Stated Complaint: Patient has a history of chronic alcohol use disorder. He stopped drinking alcohol one week ago. Patient presents now with visual hallucinations. He has also had nausea, emesis and epigastric distress. Denies fever, chills, headache, muscle weakness, numbness, tingling, seizures, hematemesis, melena, diarrhea or hematochezia. Time Seen by Provider: 12/04/21 12:37 Mode of Arrival: Walk-In Information Source: Patient Primary Care Provider: DANIELE GREEN MD Nursing and Triage Documentation Reviewed and Agree: Yes Does patient meet sepsis criteria?: No System Inflammatory Response Syndrome: Not Applicable Sepsis Protocol: For patient's 13 years and over: Temp is 96.8 and below OR 101 and greater Pulse >90 BPM Resp >20/minute Acutely Altered Mental Status Are patient's symptoms suggestive of a new infection, such as: -Pneumonia -Skin, Soft Tissue -Endocarditis -UTI -Bone, Joint Infection -Implantable Device -Acute Abdominal Infection -Wound Infection -Meningitis -Blood Stream Catheter Infection -Unknown Psychological Complaint Exam Substance Abuse/Use Complaint/Exam Patient Complains Of Substance Abuse Of: Alcohol Onset/Duration: 10 year history of heavy alcohol use Timing: Daily (2 pints of vodka daily as well as beer.) Recent Cessation: one week ago Aggravating: Reports Recent stress Associated Signs And Symptoms: Reports Hallucinating (visual), Nausea and Vomiting Possible Multi Drug Ingestion: No Last Used Drugs: none Patient Accompanied By: Family Patient In Custody Of Police: No Prior Suicide Attempt: No Patient Uncooperative For Exam: No Mood: Present Depressed and Hallucinating Appearance: Present Clean Insight: Present Poor Memory: Impaired Judgement: Impaired Danger To Others: No Review of Systems Review Of Systems Constitutional: Reports No symptoms All Other Systems: Reviewed and Negative [facility] Medical History Elevated TSH PTSD (post-traumatic stress disorder) Seasonal allergies Family History Mother Seasonal allergies Hypertension FATHER Alcoholism Heart disease Hypertension MATERNAL GRANDMOTHER Seasonal allergies Cerebrovascular accident Hypertension MATERNAL GRANDFATHER Hypertension Thyroid disease pgm Hypertension PATERNAL GRANDFATHER Hypertension Social History Smoking and tobacco status: Current every day smoker Tobacco type: cigarettes Smoking packs per day: 1 Years smoked: 15 Alcohol intake: current Alcohol intake frequency: 3 or more drinks per day Alcohol type: beer Substance use type: marijuana Counseling given: No Counseling provided: none Agree to transfusion: Yes Adopted: No Caregiver/support person: Yes Household members: other Other Household Members: grandmother Housing: apartment Marital status: D Number of children: 2 Highest education level completed: high school graduate Financial difficulty paying for basics: not very hard group home: No Current occupational status: employed Current occupation: [employer] Pets and animals: No Leisure activites: fishing History of recent travel: No Sexually active: Yes Do you think of yourself as: straight/heterosexual Current gender identity: male Seatbelt use: always Drives intoxicated or rides with intoxicated 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 Follows commands and answers questions appropriately.) Ill-appearing: Moderate Pain Distress: None Eyes: Reports SANGITA and EOMI ENT: Reports Ears normal, Nose normal, Oropharynx normal and Dry mucosa Neck: Supple Respiratory: Reports Airway patent, Breath sounds clear and Breath sounds equal Cardiovascular: Reports RRR, No rub and No murmur GI/: Reports Soft, No masses, Bowel sounds normal, No Organomegaly and Tender (Mild to moderate RUQ tenderness without peritoneal signs.) Musculoskeletal: Reports Normal strength, ROM intact and No edema Skin: Reports Warm, Dry and Normal color Neurological: Reports Sensation intact, Motor intact, Cranial nerves intact and Oriented Psychiatric: Reports Anxious and Other (affect flat;depressed) Critical Care Note Critical Care Note Total Critical Care Time (mins): 0 Course Course Hematology/Chemistry: 12/04/21 13:19 12/04/21 13:19 Orders, Labs, Meds: Lab Review 12/04/21 12/04/21 12/04/21 13:19 13:19 13:19 WBC 5.79 RBC 4.46 L Hgb 14.6 Hct 41.7 L MCV 93.5 MCH 32.7 H MCHC 35.0 RDW Coeff of Emiliano 13.5 Plt Count 141 Immature Gran % (Auto) 0.2 Neut % (Auto) 60.6 Lymph % (Auto) 26.4 [place] % (Auto) 9.7 Eos % (Auto) 2.2 Baso % (Auto) 0.9 Neut # (Auto) 3.5 Lymph # (Auto) 1.5 [place] # (Auto) 0.6 Eos # (Auto) 0.1 Baso # (Auto) 0.1 Immature Gran # (Auto) 0.0 PT 10.4 INR 1.00 Sodium 141.6 Potassium 3.48 L Chloride 106.9 Carbon Dioxide 23.7 Anion Gap 14.48 BUN 3.2 L Creatinine 0.56 L Estimated GFR (MDRD) 168.00 BUN/Creatinine Ratio 5.71 Glucose 94.1 Calcium 9.31 Total Bilirubin 0.36 AST 116.2 H ALT 100.4 H Alkaline Phosphatase 92.6 Total Protein 6.91 Albumin 4.19 Globulin 2.72 Albumin/Globulin Ratio 1.54 Lipase Plasma/Serum Alcohol SARS CoV-2 RNA Rapid BATSHEVA 12/04/21 12/04/21 12/04/21 13:19 13:54 14:23 WBC RBC Hgb Hct MCV MCH MCHC RDW Coeff of Emiliano Plt Count Immature Gran % (Auto) Neut % (Auto) Lymph % (Auto) [place] % (Auto) Eos % (Auto) Baso % (Auto) Neut # (Auto) Lymph # (Auto) [place] # (Auto) Eos # (Auto) Baso # (Auto) Immature Gran # (Auto) PT INR Sodium Potassium Chloride Carbon Dioxide Anion Gap BUN Creatinine Estimated GFR (MDRD) BUN/Creatinine Ratio Glucose Calcium Total Bilirubin AST ALT Alkaline Phosphatase Total Protein Albumin Globulin Albumin/Globulin Ratio Lipase 137.8 Plasma/Serum Alcohol 25.2 SARS CoV-2 RNA Rapid BATSHEVA Negative Orders Category Date Time Status Saline Lock [ED IV/MEDIPORT/POWERPORT] .ONCE EMERGENCY 12/04/21 13:02 Active BLOOD ALCOHOL Stat LAB 12/04/21 14:23 Completed CBC W/ AUTO DIFF Stat LAB 12/04/21 13:19 Completed CMP [COMPREHENSIVE METABOLIC PANEL] Stat LAB 12/04/21 13:19 Completed COVID [SARS COV-2 RNA RAPID BATSHEVA] Stat LAB 12/04/21 13:54 Completed LIPASE Stat LAB 12/04/21 13:19 Completed PT WITH INR Stat LAB 12/04/21 13:19 Completed URINALYSIS C & S IF INDICATED Stat LAB 12/04/21 13:02 Uncollected URINE DRUG SCREEN (RAPID FOR ED) [DRUG SCREEN, URINE, LAB 12/04/21 13:02 Uncollected RAPID] Stat 0.9 % Sodium Chloride [Saline Flush] MEDS 12/04/21 13:02 Active 1 syr IVF PRN PRN Lorazepam [Ativan] MEDS 12/04/21 13:02 Discontinued 2 mg IVP ONCE STA Ondansetron HCl/Pf [Zofran 4 mg/2 ml] MEDS 12/04/21 13:02 Discontinued 8 mg IVP ONCE STA Pantoprazole Sodium [Protonix IV] MEDS 12/04/21 13:06 Discontinued 80 mg IVP ONCE STA Sodium Chloride 0.9% [Sodium Chloride] 1,000 ml MEDS 12/04/21 13:02 Discontinued IV BOLUS Vitamin B-1 Inj [Thiamine] MEDS 12/04/21 13:25 Discontinued 200 mg .ROUTE .STK-MED ONE Vitamin B-1 Inj [Thiamine] 100 mg MEDS 12/04/21 13:04 Discontinued 0.9 % Sodium Chloride [Sodium Chloride] 50 ml IV ONCE Medications Generic Name Dose Route Start Last Admin Trade Name Freq PRN Reason Stop Dose Admin Sodium Chloride 1 syr 12/04/21 13:02 12/04/21 13:40 0.9% Sodium Chloride 10 Ml Disp.Syrin IVF 1 syr PRN PRN Administration To flush IV Discontinued Medications Generic Name Dose Route Start Last Admin Trade Name Freq PRN Reason Stop Dose Admin Sodium Chloride 1,000 mls @ 1,000 mls/hr 12/04/21 13:02 12/04/21 13:40 Sodium Chloride IV 12/04/21 14:01 1,000 mls/hr BOLUS STA Administration Thiamine HCl 100 mg/ Sodium 51 mls @ 100 mls/hr 12/04/21 13:04 12/04/21 13:38 Chloride IV 12/04/21 13:34 100 mls/hr ONCE STA Administration Lorazepam 2 mg 08/26/22 13:02 12/04/21 13:40 Lorazepam Inj 2 Mg/Ml Vial IVP 12/04/21 13:03 2 mg ONCE STA Administration Ondansetron HCl 8 mg 12/04/21 13:02 12/04/21 13:39 Ondansetron Hcl/Pf 4 Mg/2 Ml Sdv IVP 12/04/21 13:03 8 mg ONCE STA Administration Pantoprazole Sodium 80 mg 12/04/21 13:06 12/04/21 13:40 Pantoprazole Sodium 40 Mg Vial IVP 12/04/21 13:07 80 mg ONCE STA Administration Vital Signs: Temp Pulse Resp BP Pulse Ox 12/04/21 12:27 97.9 F 107 H 18 125/81 98 Discharge Plan Discharge Patient Disposition: ADMITTED INPATIENT Discharge Problem: Alcohol withdrawal syndrome, Alcohol use disorder, moderate, dependence, Acute hypokalemia, Elevation of levels of liver transaminase levels Did you review [place] SEARCH AND RESCUE OFFICER?: Not Applicable ED Provider: GWEN RIVAS Condition: Fair Physician Progress Note: []
[2021-12-04] MEDS ORDERED: ZOFRAN 4 MG/2 ML IVP STA (13:02)
[2021-12-04] MEDS ORDERED: SODIUM CHLORIDE 1,000 ML IV STA (13:02)
[2021-12-04] MEDS ORDERED: ATIVAN IVP STA (13:02)
[2021-12-04] MEDS ORDERED: THIAMINE 100 MG in SODIUM CHLORIDE 50 ML IV STA (13:04)
[2021-12-04] MEDS ORDERED: PROTONIX IV IVP STA (13:06)
[2021-12-04] MEDS ORDERED: THIAMINE ONE (13:25)
[2021-12-04 13:36] LABS: ALANINE AMINOTRANSFERASE 100.4 U/L (0-50); ALBUMIN 4.19 g/dL (3.5-5.0); ALKALINE PHOSPHATASE 92.6 U/L (38-126); ASPARTATE AMINO TRANSFERASE 116.2 U/L (17-59); BILIRUBIN,TOTAL 0.36 mg/dL (0.2-1.3); BLOOD UREA NITROGEN 3.2 mg/dL (9-20); CALCIUM 9.31 mg/dL (8.4-10.2); CARBON DIOXIDE 23.7 mmol/L (22-30.0); CHLORIDE 106.9 mmol/L (98-107); CREATININE 0.56 mg/dL (0.60-1.10); GLUCOSE 94.1 mg/dL (74-106); POTASSIUM 3.48 mmol/L (3.5-5.1); SODIUM 141.6 mmol/L (134.5-145); TOTAL PROTEIN 6.91 g/dL (6.3-8.2)
[2021-12-04 13:44] LABS: PROTHROMBIN TIME 10.4 SEC (9.3-11.0)
[2021-12-04 14:12] LABS: BASOPHILS # (AUTO) 0.1 K/uL (0-0.2); BASOPHILS % (AUTO) 0.9 % (0.0-3.0); EOSINOPHILS # (AUTO) 0.1 K/ul (0.0-0.7); EOSINOPHILS % (AUTO) 2.2 % (0.0-7.0); HEMATOCRIT 41.7 % (42.0-52.0); HEMOGLOBIN 14.6 g/dl (14.0-18.0); IMMATURE GRANULOCYTE % (AUTO) 0.2 % (0.0-5.0); LYMPHOCYTES # (AUTO) 1.5 K/uL (0.60-3.4); LYMPHOCYTES % (AUTO) 26.4 (10.0-50.0); MEAN CORPUSCULAR HEMOGLOBIN 32.7 pg (27.0-31.0); MEAN CORPUSCULAR VOLUME 93.5 fl (80.0-94.0); MONOCYTES # (AUTO) 0.6 K/uL (0.4-2.0); MONOCYTES % (AUTO) 9.7 (0-10); NEUTROPHILS # (AUTO) 3.5 K/ul (2.0-6.9); NEUTROPHILS % (AUTO) 60.6 % (42.2-75.2); PLATELET COUNT 141 10^3/uL (140-440); RDW COEFFICIENT OF VARIATION 13.5 % (11.6-14.8); RED BLOOD COUNT 4.46 10^6/ul (4.70-6.10); WHITE BLOOD COUNT 5.79 K/ul (4.2-10.2)
[2021-12-04] MEDS: LIBRIUM PO SCH ×2 (15:13→17:56)
--- NOTE | 2021-12-04 15:23 | PCM ---
Chief Complaint Chief Complaint: alcohol withdrawal, visual hallucinations History of Present Illness History of Present Illness: Patient has a history of chronic alcohol use disorder and presents with visual hallucinations after not having drank alcohol for one week. He has also had some nausea, emesis and RUQ pain. He denies fever, chills, headache, cough, dyspnea, chest pain, melena, hematemesis, diarrhea, hematochezia, seizures, muscle weakness, numbness or tingling. Review of Systems Constitutional: Reports Loss of appetite Eyes: Reports No symptoms Ears: Reports No symptoms Nose: Reports No symptoms Throat: Reports No symptoms Mouth: Reports No symptoms Respiratory: Reports No symptoms Cardiovascular: Reports No symptoms Gastrointestinal: Reports Abdominal pain, Nausea and Vomiting Genitourinary: Reports No symptoms Neurological: Reports Other (visual hallucinations) Musculoskeletal: Reports No symptoms Skin: Reports No symptoms Immunology: Reports No symptoms Hematology: Reports No symptoms Endocrine: Reports No symptoms Psychiatric: Reports Hallucinations Habits: Reports Tobacco use and Alcohol use Allergies Allergies Allergy/AdvReac Type Severity Reaction Status Date / Time No Known Allergies Allergy Verified 11/16/21 12:41 [facility] Medical History Elevated TSH PTSD (post-traumatic stress disorder) Seasonal allergies Surgical History History of musculoskeletal system surgery Family History Mother Seasonal allergies Hypertension FATHER Alcoholism Heart disease Hypertension MATERNAL GRANDMOTHER Seasonal allergies Cerebrovascular accident Hypertension MATERNAL GRANDFATHER Hypertension Thyroid disease pgm Hypertension PATERNAL GRANDFATHER Hypertension Social History Smoking and tobacco status: Current every day smoker Tobacco type: cigarettes Smoking packs per day: 1 Years smoked: 15 Alcohol intake: current Alcohol intake frequency: 3 or more drinks per day Alcohol type: beer Substance use type: marijuana Counseling given: No Counseling provided: none Agree to transfusion: Yes Adopted: No Caregiver/support person: Yes Household members: other Other Household Members: grandmother Housing: apartment Marital status: D Number of children: 2 Highest education level completed: high school graduate Financial difficulty paying for basics: not very hard intermediate: No Current occupational status: employed Current occupation: [employer] Pets and animals: No Leisure activites: fishing History of recent travel: No Sexually active: Yes Do you think of yourself as: straight/heterosexual Current gender identity: male Seatbelt use: always 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) Water heater temperature set < 120 degrees: Yes Working smoke detector in home: Yes Fire extinguisher in home: No Carbon monoxide detector in home: Yes Firearms in home: No Medications Medications: Medications Generic Name Dose Route Start Last Admin Trade Name Freq PRN Reason Stop Dose Admin Chlordiazepoxide HCl 25 mg 12/04/21 15:00 Chlordiazepoxide Hcl 25 Mg Capsule PO Q6HR JUVENAL Potassium Chloride/Sodium Chloride 1,000 mls @ 150 mls/hr 12/04/21 15:00 Sodium Chloride 0.9%-Kcl 20 Meq IV .Q6H40M JUVENAL Lorazepam 1 mg 12/04/21 14:47 Lorazepam 1 Mg Tablet PO Q4H PRN Alcohol Withdrawal Sodium Chloride 1 syr 12/04/21 13:02 12/04/21 13:40 0.9% Sodium Chloride 10 Ml Disp.Syrin IVF 1 syr PRN PRN Administration To flush IV Thiamine HCl 100 mg 12/05/21 09:00 Vitamin B-1 100 Mg Tablet PO DAILY [facility] Body Composition Height: 6 ft 1 in Weight: 69.853 kg Body Mass Index (BMI): 20.2 Vital Signs Temperature: 97.9 F Pulse Rate: 107 Respiratory Rate: 18 Blood Pressure: 125/81 O2 Sat by Pulse Oximetry: 98 Physical Examination Appearance: Reports Ill-appearing, No pain distress and Thin Ill-appearing: Moderate Pain Distress: None Eyes: Reports SANGITA and EOMI ENT: Reports Ears normal, Nose normal and Oropharynx normal Neck: Supple Respiratory: Reports Airway patent, Breath sounds clear and Breath sounds equal Cardiovascular: Reports RRR, No rub and No murmur GI/: Reports Soft, No masses, Bowel sounds normal, No Organomegaly and Tender (mild RUQ tenderness) Musculoskeletal: Reports Normal strength, ROM intact and No edema Skin: Reports Warm, Dry and Normal color Neurological: Reports Sensation intact, Motor intact, Cranial nerves intact, Alert and Oriented Psychiatric: Reports Depressed Lab/Tests/Diagnostic Imaging Lab/Tests/Diagnostic Imaging: Lab Review 12/04/21 12/04/2122 13:19 13:19 13:19 WBC 5.79 RBC 4.46 L Hgb 14.6 Hct 41.7 L MCV 93.5 MCH 32.7 H MCHC 35.0 RDW Coeff of Emiliano 13.5 Plt Count 141 Immature Gran % (Auto) 0.2 Neut % (Auto) 60.6 Lymph % (Auto) 26.4 Miller % (Auto) 9.7 Eos % (Auto) 2.2 Baso % (Auto) 0.9 Neut # (Auto) 3.5 Lymph # (Auto) 1.5 Miller # (Auto) 0.6 Eos # (Auto) 0.1 Baso # (Auto) 0.1 Immature Gran # (Auto) 0.0 PT 10.4 INR 1.00 Sodium 141.6 Potassium 3.48 L Chloride 106.9 Carbon Dioxide 23.7 Anion Gap 14.48 BUN 3.2 L Creatinine 0.56 L Estimated GFR (MDRD) 168.00 BUN/Creatinine Ratio 5.71 Glucose 94.1 Calcium 9.31 Total Bilirubin 0.36 AST 116.2 H ALT 100.4 H Alkaline Phosphatase 92.6 Total Protein 6.91 Albumin 4.19 Globulin 2.72 Albumin/Globulin Ratio 1.54 Lipase Plasma/Serum Alcohol SARS CoV-2 RNA Rapid BATSHEVA 12/04/21 12/04/21 12/04/21 13:19 13:54 14:23 WBC RBC Hgb Hct MCV MCH MCHC RDW Coeff of Emiliano Plt Count Immature Gran % (Auto) Neut % (Auto) Lymph % (Auto) Miller % (Auto) Eos % (Auto) Baso % (Auto) Neut # (Auto) Lymph # (Auto) Miller # (Auto) Eos # (Auto) Baso # (Auto) Immature Gran # (Auto) PT INR Sodium Potassium Chloride Carbon Dioxide Anion Gap BUN Creatinine Estimated GFR (MDRD) BUN/Creatinine Ratio Glucose Calcium Total Bilirubin AST ALT Alkaline Phosphatase Total Protein Albumin Globulin Albumin/Globulin Ratio Lipase 137.8 Plasma/Serum Alcohol 25.2 SARS CoV-2 RNA Rapid BATSHEVA Negative Orders Category Date Time Status ADMIT PATIENT INPATIENT .TO [facility] (NON-MONITORED ADMISSION 12/04/21 14:41 Active BED) ACTIVITY .Up ad Ludivina CARE 12/04/21 14:41 Active INTAKE & OUTPUT Q8HR CARE 12/04/21 14:41 Active IP: INSERT SALINE LOCK ONCE CARE 12/04/21 14:41 Active VITAL SIGNS Q4HR CARE 12/04/21 14:46 Active VITAL SIGNS Q8HR CARE 12/04/21 14:41 Active REGULAR DIET DIETARY 12/04/21 Dinner Ordered Saline Lock [ED IV/MEDIPORT/POWERPORT] .ONCE EMERGENCY 12/04/21 13:02 Active BLOOD ALCOHOL Stat LAB 12/04/21 14:23 Completed CBC W/ AUTO DIFF DAILY@0600 LAB 12/05/21 06:00 Ordered CBC W/ AUTO DIFF DAILY@0600 LAB 12/06/21 06:00 Ordered CBC W/ AUTO DIFF Stat LAB 12/04/21 13:19 Completed CMP [COMPREHENSIVE METABOLIC PANEL] Stat LAB 12/04/21 13:19 Completed COMPREHENSIVE METABOLIC PANEL DAILY@0600 LAB 12/05/21 06:00 Ordered COMPREHENSIVE METABOLIC PANEL DAILY@0600 LAB 12/06/21 06:00 Ordered COVID [SARS COV-2 RNA RAPID BATSHEVA] Stat LAB 12/04/21 13:54 Completed LIPASE Stat LAB 12/04/21 13:19 Completed PT WITH INR Stat LAB 12/04/21 13:19 Completed URINALYSIS C & S IF INDICATED Stat LAB 12/04/21 13:02 Uncollected URINE DRUG SCREEN (RAPID FOR ED) [DRUG SCREEN, URINE, LAB 12/04/21 13:02 Uncollected RAPID] Stat 0.9 % Sodium Chloride [Saline Flush] MEDS 12/04/21 13:02 Active 1 syr IVF PRN PRN Chlordiazepoxide HCl [Librium] MEDS 12/04/21 15:00 Active 25 mg PO Q6HR Lorazepam [Ativan] MEDS 12/04/21 14:47 Active 1 mg PO Q4H PRN Lorazepam [Ativan] MEDS 12/04/21 13:02 Discontinued 2 mg IVP ONCE STA Ondansetron HCl/Pf [Zofran 4 mg/2 ml] MEDS 12/04/21 13:02 Discontinued 8 mg IVP ONCE STA Pantoprazole Sodium [Protonix IV] MEDS 12/04/21 13:06 Discontinued 80 mg IVP ONCE STA Potassium Chloride in 0.9%NaCl [Sodium Chloride 0.9%- MEDS 12/04/21 15:00 Active KCl 20 Meq] 1,000 ml IV 150 mls/hr Sodium Chloride 0.9% [Sodium Chloride] 1,000 ml MEDS 12/04/21 13:02 Discontinued IV BOLUS Vitamin B-1 Inj [Thiamine] MEDS 12/04/21 13:25 Discontinued 200 mg .ROUTE .STK-MED ONE Vitamin B-1 Inj [Thiamine] 100 mg MEDS 12/04/21 13:04 Discontinued 0.9 % Sodium Chloride [Sodium Chloride] 50 ml IV ONCE Vitamin B-1 [Thiamine] MEDS 12/05/21 09:00 Active 100 mg PO DAILY RESUSCITATION STATUS Routine OTHERS 12/04/21 14:41 Ordered Medications Generic Name Dose Route Start Last Admin Trade Name Freq PRN Reason Stop Dose Admin Chlordiazepoxide HCl 25 mg 12/04/21 15:00 Chlordiazepoxide Hcl 25 Mg Capsule PO Q6HR JUVENAL Potassium Chloride/Sodium Chloride 1,000 mls @ 150 mls/hr 12/04/21 15:00 Sodium Chloride 0.9%-Kcl 20 Meq IV .Q6H40M JUVENAL Lorazepam 1 mg 12/04/21 14:47 Lorazepam 1 Mg Tablet PO Q4H PRN Alcohol Withdrawal Sodium Chloride 1 syr 12/04/21 13:02 12/04/21 13:40 0.9% Sodium Chloride 10 Ml Disp.Syrin IVF 1 syr PRN PRN Administration To flush IV Thiamine HCl 100 mg 12/05/21 09:00 Vitamin B-1 100 Mg Tablet PO DAILY JUVENAL Discontinued Medications Generic Name Dose Route Start Last Admin Trade Name Freq PRN Reason Stop Dose Admin Sodium Chloride 1,000 mls @ 1,000 mls/hr 12/04/21 13:02 12/04/21 13:40 Sodium Chloride IV 12/04/21 14:01 1,000 mls/hr BOLUS STA Administration Thiamine HCl 100 mg/ Sodium 51 mls @ 100 mls/hr 12/04/21 13:04 12/04/21 13:38 Chloride IV 12/04/21 13:34 100 mls/hr ONCE STA Administration Lorazepam 2 mg 12/04/21 13:02 12/04/21 13:40 Lorazepam Inj 2 Mg/Ml Vial IVP 12/04/21 13:03 2 mg ONCE STA Administration Ondansetron HCl 8 mg 12/04/21 13:02 12/04/21 13:39 Ondansetron Hcl/Pf 4 Mg/2 Ml Sdv IVP 12/04/21 13:03 8 mg ONCE STA Administration Pantoprazole Sodium 80 mg 12/04/21 13:06 12/04/21 13:40 Pantoprazole Sodium 40 Mg Vial IVP 12/04/21 13:07 80 mg ONCE STA Administration Assessment (1) Alcohol use disorder, moderate, dependence: Status: Acute Code(s): F10.20 - Alcohol dependence, uncomplicated SNOMED Code(s): 125189127 (2) Alcohol withdrawal syndrome: Status: Acute Code(s): F10.939 - Alcohol use, unspecified with withdrawal, unspecified SNOMED Code(s): 827311171 (3) Acute hypokalemia: Status: Acute Code(s): E87.6 - Hypokalemia SNOMED Code(s): 87489630 (4) Elevation of levels of liver transaminase levels: Status: Acute Code(s): R74.01 - Elevation of levels of liver transaminase levels SNOMED Code(s): 653934391 (5) Nausea and vomiting: Status: Acute Code(s): R11.2 - Nausea with vomiting, unspecified SNOMED Code(s): 18547379 (6) RUQ abdominal pain: Status: Acute Code(s): R10.11 - Right upper quadrant pain SNOMED Code(s): 948331269 Plan Plan: Patient to be admitted for IV fluid hydration. His potassium will be repleted. Patient will receive thiamine, librium Q6hr and ativan Q4hr PRN. Zofran for nausea and emesis. Observe elevated LFTS and abdominal pain.
[2021-12-04] MEDS: SODIUM CHLORIDE 0.9%-KCL 20 MEQ 1,000 ML IV SCH (15:50)
[2021-12-04 16:02] LABS: BILIRUBIN,URINE Negative (NEGATIVE); CLARITY,URINE Clear (CLEAR); COLOR,URINE Yellow (YELLOW); GLUCOSE, URINE (UA) Negative (NEGATIVE); KETONES,URINE Negative (NEGATIVE); LEUKOCYTE ESTERASE ,URINE Negative (NEGATIVE); NITRITE,URINE Negative (NEGATIVE); PH,URINE 6.5 (5-9); PROTEIN,URINE Negative (NEGATIVE); URINE, BLOOD Negative (NEGATIVE); UROBILINOGEN,URINE 0.2 (0.2)
[2021-12-04 16:13] LABS: BENZODIAZEPINES SCREEN,URINE POSITIVE (NEGATIVE); TRICYCLIC ANTIDEPRESSANTS URIN POSITIVE (NEGATIVE)
[2021-12-04 16:14] LABS: AMPHETAMINE SCREEN,URINE NEGATIVE (NEGATIVE); BARBITURATE SCREEN,URINE NEGATIVE (NEGATIVE); CANNABINOID SCREEN,URINE NEGATIVE (NEGATIVE); COCAIN SCREEN,URINE NEGATIVE (NEGATIVE); METHADONE URINE SCREEN NEGATIVE (NEGATIVE); METHAMPHETAMINES SCREEN,URINE NEGATIVE (NEGATIVE); OPIATE SCREEN,URINE NEGATIVE (NEGATIVE); OXYCODONE URINE SCREEN NEGATIVE (NEGATIVE); PHENCYCLIDINE SCREEN,URINE NEGATIVE (NEGATIVE); PROPOXYPHENE URINE SCREEN NEGATIVE (NEGATIVE)
[2021-12-04 17:01] VITALS: BMI 20.9
[2021-12-04] MEDS: ATIVAN PO PRN (19:31)
[2021-12-04] MEDS: NICODERM 21 MG TD SCH (20:27)
[2021-12-05 05:04] LABS: BASOPHILS # (AUTO) 0.1 K/uL (0-0.2); BASOPHILS % (AUTO) 1.1 % (0.0-3.0); EOSINOPHILS # (AUTO) 0.3 K/ul (0.0-0.7); EOSINOPHILS % (AUTO) 4.2 % (0.0-7.0); HEMATOCRIT 41.4 % (42.0-52.0); HEMOGLOBIN 14.3 g/dl (14.0-18.0); IMMATURE GRANULOCYTE % (AUTO) 0.2 % (0.0-5.0); LYMPHOCYTES # (AUTO) 1.6 K/uL (0.60-3.4); LYMPHOCYTES % (AUTO) 25.4 (10.0-50.0); MEAN CORPUSCULAR HEMOGLOBIN 32.6 pg (27.0-31.0); MEAN CORPUSCULAR HGB CONC 34.5 (31.8-35.4); MEAN CORPUSCULAR VOLUME 94.5 fl (80.0-94.0); MONOCYTES # (AUTO) 0.8 K/uL (0.4-2.0); MONOCYTES % (AUTO) 11.8 (0-10); NEUTROPHILS # (AUTO) 3.7 K/ul (2.0-6.9); NEUTROPHILS % (AUTO) 57.3 % (42.2-75.2); PLATELET COUNT 135 10^3/uL (140-440); RDW COEFFICIENT OF VARIATION 13.5 % (11.6-14.8); RED BLOOD COUNT 4.38 10^6/ul (4.70-6.10); WHITE BLOOD COUNT 6.45 K/ul (4.2-10.2)
[2021-12-05 05:15] LABS: ALANINE AMINOTRANSFERASE 84.4 U/L (0-50); ALBUMIN 3.41 g/dL (3.5-5.0); ALKALINE PHOSPHATASE 79.3 U/L (38-126); ASPARTATE AMINO TRANSFERASE 87.8 U/L (17-59); BILIRUBIN,TOTAL 0.6 mg/dL (0.2-1.3); BLOOD UREA NITROGEN 6.1 mg/dL (9-20); CALCIUM 8.85 mg/dL (8.4-10.2); CARBON DIOXIDE 27.7 mmol/L (22-30.0); CHLORIDE 106.7 mmol/L (98-107); CREATININE 0.61 mg/dL (0.60-1.10); GLUCOSE 108.4 mg/dL (74-106); POTASSIUM 3.71 mmol/L (3.5-5.1); SODIUM 138.1 mmol/L (134.5-145); TOTAL PROTEIN 5.93 g/dL (6.3-8.2)
[2021-12-05] MEDS: LIBRIUM PO SCH ×5 (07:10→23:08)
[2021-12-05] MEDS: THIAMINE PO SCH (08:18)
[2021-12-05] MEDS: NICODERM 21 MG TD SCH (08:19)
[2021-12-05] MEDS: SODIUM CHLORIDE 0.9%-KCL 20 MEQ 1,000 ML IV SCH ×5 (08:35→19:01)
[2021-12-05] MEDS: ATIVAN PO PRN ×4 (12:13→23:08)
--- NOTE | 2021-12-05 17:02 | PCM.PROG ---
Date Seen by Provider: 12/05/21 Time Seen by Provider: 11:50 Subjective: Nursing noted some mild tremors. He wanted also to smoke last nite and nicotene patch provided Some GI ( irritation ) -had recent UGI /LGI no reported findings per patient. Objective: Vitals: T=98.6 F, P=78, R=16, AH=138/87, SPO2=99 HEENT: [no icterus hearing intact speech normal ] Neck: [supple ] Lungs: [clear bilateral ] CVS: regular Abdomen: [soft non distended ] Extremities: [FROM] Neurological: [intact / mild tremble ] Skin: [nop rash ] Lab/Tests/Diagnostic Imaging: [ hepatic enzymes trending down ] (1) Alcohol use disorder, moderate, dependence: Status: Acute Code(s): F10.20 - Alcohol dependence, uncomplicated SNOMED Code(s): 321299517 (2) Alcohol withdrawal syndrome: Status: Acute Code(s): F10.939 - Alcohol use, unspecified with withdrawal, unspecified SNOMED Code(s): 694134813 (3) Acute hypokalemia: Status: Acute Code(s): E87.6 - Hypokalemia SNOMED Code(s): 20506146 (4) Elevation of levels of liver transaminase levels: Status: Acute Code(s): R74.01 - Elevation of levels of liver transaminase levels SNOMED Code(s): 833107902 (5) Nausea and vomiting: Status: Acute Code(s): R11.2 - Nausea with vomiting, unspecified SNOMED Code(s): 45900302 (6) RUQ abdominal pain: Status: Acute Code(s): R10.11 - Right upper quadrant pain SNOMED Code(s): 817864070 Plan: 1. Alcohol withdrawal - continue librium 25mg q 6 hrs and q 4 hr prn 1 mg lorazepam for observed tremors 2 For GI - omeprazol 20 mg po daily 3.For DVT - lovenox 40 mg Subq daily 4. For hypokalemia - continue IV K added to infusion 5.Follow BP readings 6.For nicotine addiction - continue nicotine patch 7.For continued alcohol abstinence - medical services coordinator / Case management consult [facility] for patient interview and options for ongoing treatment
[2021-12-05] MEDS: PRILOSEC PO SCH (17:52)
[2021-12-05] MEDS: LOVENOX SUBCUT SCH (20:29)
[2021-12-06] MEDS: SODIUM CHLORIDE 0.9%-KCL 20 MEQ 1,000 ML IV SCH ×4 (02:03→15:55)
[2021-12-06 05:05] LABS: BASOPHILS # (AUTO) 0.1 K/uL (0-0.2); BASOPHILS % (AUTO) 1.6 % (0.0-3.0); EOSINOPHILS # (AUTO) 0.3 K/ul (0.0-0.7); EOSINOPHILS % (AUTO) 4.9 % (0.0-7.0); HEMATOCRIT 40.2 % (42.0-52.0); IMMATURE GRANULOCYTE % (AUTO) 0.2 % (0.0-5.0); LYMPHOCYTES # (AUTO) 1.6 K/uL (0.60-3.4); LYMPHOCYTES % (AUTO) 27.5 (10.0-50.0); MEAN CORPUSCULAR HEMOGLOBIN 32.9 pg (27.0-31.0); MEAN CORPUSCULAR HGB CONC 34.8 (31.8-35.4); MEAN CORPUSCULAR VOLUME 94.4 fl (80.0-94.0); MONOCYTES # (AUTO) 0.6 K/uL (0.4-2.0); MONOCYTES % (AUTO) 11.2 (0-10); NEUTROPHILS # (AUTO) 3.1 K/ul (2.0-6.9); NEUTROPHILS % (AUTO) 54.6 % (42.2-75.2); PLATELET COUNT 136 10^3/uL (140-440); RDW COEFFICIENT OF VARIATION 13.4 % (11.6-14.8); RED BLOOD COUNT 4.26 10^6/ul (4.70-6.10)
[2021-12-06 05:16] LABS: ALANINE AMINOTRANSFERASE 72.8 U/L (0-50); ALBUMIN 3.4 g/dL (3.5-5.0); ALKALINE PHOSPHATASE 91.7 U/L (38-126); ASPARTATE AMINO TRANSFERASE 63.6 U/L (17-59); BILIRUBIN,TOTAL 0.29 mg/dL (0.2-1.3); BLOOD UREA NITROGEN 3.5 mg/dL (9-20); CALCIUM 8.94 mg/dL (8.4-10.2); CHLORIDE 109.3 mmol/L (98-107); CREATININE 0.57 mg/dL (0.60-1.10); GLUCOSE 90.9 mg/dL (74-106); MAGNESIUM 1.78 mg/dL (1.6-2.3); POTASSIUM 3.96 mmol/L (3.5-5.1); SODIUM 138.2 mmol/L (134.5-145); TOTAL PROTEIN 5.95 g/dL (6.3-8.2)
[2021-12-06] MEDS: LIBRIUM PO SCH ×4 (05:43→23:42)
[2021-12-06] MEDS: ATIVAN PO PRN ×4 (05:43→23:42)
[2021-12-06] MEDS: PRILOSEC PO SCH (05:43)
[2021-12-06] MEDS: LOVENOX SUBCUT SCH ×2 (08:11→20:21)
[2021-12-06] MEDS: THIAMINE PO SCH (08:12)
[2021-12-06] MEDS: NICODERM 21 MG TD SCH (08:13)
[2021-12-06] MEDS: FOLIC ACID PO SCH (16:33)
[2021-12-06] MEDS: MICRO-K CAP PO SCH (17:14)
[2021-12-07] MEDS: SODIUM CHLORIDE 0.9%-KCL 20 MEQ 1,000 ML IV SCH (02:37)
[2021-12-07 05:22] LABS: BLOOD UREA NITROGEN 3.2 mg/dL (9-20); CALCIUM 9.12 mg/dL (8.4-10.2); CARBON DIOXIDE 27.8 mmol/L (22-30.0); CHLORIDE 106.5 mmol/L (98-107); CREATININE 0.62 mg/dL (0.60-1.10); GLUCOSE 96.6 mg/dL (74-106); MAGNESIUM 1.85 mg/dL (1.6-2.3); POTASSIUM 3.91 mmol/L (3.5-5.1); SODIUM 137.8 mmol/L (134.5-145)
[2021-12-07] MEDS: PRILOSEC PO SCH (05:45)
[2021-12-07] MEDS: LIBRIUM PO SCH ×2 (05:45→12:12)
[2021-12-07] MEDS: MICRO-K CAP PO SCH (08:15)
[2021-12-07] MEDS: THIAMINE PO SCH (08:15)
[2021-12-07] MEDS: FOLIC ACID PO SCH (08:15)
[2021-12-07] MEDS: NICODERM 21 MG TD SCH (08:17)
[2021-12-07] MEDS: LOVENOX SUBCUT SCH (08:17)
[2021-12-07 13:14] VITALS: BP 137/90; TEMP 99
--- NOTE | 2021-12-15 17:34 | PCM.DC ---
Final Diagnosis: Alcoholism, chronic. Hypokalemia, resolved. Date of admit - 12/04/2021 Date of discharge - 12/07/2021 Physical Exam Appearance: Well-appearing Ill-appearing: None Pain Distress: None Eyes: SANGITA ENT: Oropharynx normal Neck: Supple Respiratory: Airway patent and Breath sounds clear Cardiovascular: Pulses normal GI/: Soft and Nontender Musculoskeletal: Normal strength and ROM intact Skin: Warm and Dry Neurological: Sensation intact and Motor intact Psychiatric: Affect appropriate and Mood appropriate (1) Alcohol use disorder, moderate, dependence: Status: Acute Code(s): F10.20 - Alcohol dependence, uncomplicated SNOMED Code(s): 654188790 (2) Alcohol withdrawal syndrome: Status: Acute Code(s): F10.939 - Alcohol use, unspecified with withdrawal, unspecified SNOMED Code(s): 169727350 (3) Acute hypokalemia: Status: Acute Code(s): E87.6 - Hypokalemia SNOMED Code(s): 52587415 (4) Elevation of levels of liver transaminase levels: Status: Acute Code(s): R74.01 - Elevation of levels of liver transaminase levels SNOMED Code(s): 307179624 (5) Nausea and vomiting: Status: Acute Code(s): R11.2 - Nausea with vomiting, unspecified SNOMED Code(s): 74133765 Reason for Hospitalization: Admitted for acute alcohol withdrawal with secondary nausea and vomiting and hypokalemia secondary to that. Prognosis/Condition at Discharge: Stable Medications at Discharge: See RN list Lab/Diagnostics: Laboratory Tests 12/04/21 12/04/21 12/04/21 13:19 13:19 13:19 WBC 5.79 RBC 4.46 L Hgb 14.6 Hct 41.7 L MCV 93.5 MCH 32.7 H MCHC 35.0 RDW Coeff of Emiliano 13.5 Plt Count 141 Immature Gran % (Auto) 0.2 Neut % (Auto) 60.6 Lymph % (Auto) 26.4 Price % (Auto) 9.7 Eos % (Auto) 2.2 Baso % (Auto) 0.9 Neut # (Auto) 3.5 Lymph # (Auto) 1.5 Price # (Auto) 0.6 Eos # (Auto) 0.1 Baso # (Auto) 0.1 Immature Gran # (Auto) 0.0 PT 10.4 INR 1.00 Sodium 141.6 Potassium 3.48 L Chloride 106.9 Carbon Dioxide 23.7 Anion Gap 14.48 BUN 3.2 L Creatinine 0.56 L Estimated GFR (MDRD) 168.00 BUN/Creatinine Ratio 5.71 Glucose 94.1 Calcium 9.31 Magnesium Total Bilirubin 0.36 AST 116.2 H ALT 100.4 H Alkaline Phosphatase 92.6 Total Protein 6.91 Albumin 4.19 Globulin 2.72 Albumin/Globulin Ratio 1.54 Lipase Urine Color Urine Clarity Urine pH Ur Specific [place] Urine Protein Urine Glucose (UA) Urine Ketones Urine Blood Urine Nitrite Urine Bilirubin Urine Urobilinogen Ur Leukocyte Esterase Urine Opiates Screen Ur Oxycodone Screen Urine Methadone Screen Ur Propoxyphene Screen Ur Barbiturates Screen U Tricyclic Antidepress Ur Phencyclidine Scrn Ur Amphetamine Screen U Methamphetamines Scrn U Benzodiazepines Scrn Urine Cocaine Screen U Cannabinoids Screen Plasma/Serum Alcohol SARS CoV-2 RNA Rapid BATSHEVA 12/04/21 12/04/21 12/04/21 13:19 13:54 14:23 WBC RBC Hgb Hct MCV MCH MCHC RDW Coeff of Emiliano Plt Count Immature Gran % (Auto) Neut % (Auto) Lymph % (Auto) Price % (Auto) Eos % (Auto) Baso % (Auto) Neut # (Auto) Lymph # (Auto) Price # (Auto) Eos # (Auto) Baso # (Auto) Immature Gran # (Auto) PT INR Sodium Potassium Chloride Carbon Dioxide Anion Gap BUN Creatinine Estimated GFR (MDRD) BUN/Creatinine Ratio Glucose Calcium Magnesium Total Bilirubin AST ALT Alkaline Phosphatase Total Protein Albumin Globulin Albumin/Globulin Ratio Lipase 137.8 Urine Color Urine Clarity Urine pH Ur Specific [place] Urine Protein Urine Glucose (UA) Urine Ketones Urine Blood Urine Nitrite Urine Bilirubin Urine Urobilinogen Ur Leukocyte Esterase Urine Opiates Screen Ur Oxycodone Screen Urine Methadone Screen Ur Propoxyphene Screen Ur Barbiturates Screen U Tricyclic Antidepress Ur Phencyclidine Scrn Ur Amphetamine Screen U Methamphetamines Scrn U Benzodiazepines Scrn Urine Cocaine Screen U Cannabinoids Screen Plasma/Serum Alcohol 25.2 SARS CoV-2 RNA Rapid BATSHEVA Negative 12/04/21 12/04/21 12/05/21 15:50 15:50 04:58 WBC 6.45 RBC 4.38 L Hgb 14.3 Hct 41.4 L MCV 94.5 H MCH 32.6 H MCHC 34.5 RDW Coeff of Emiliano 13.5 Plt Count 135 L Immature Gran % (Auto) 0.2 Neut % (Auto) 57.3 Lymph % (Auto) 25.4 Price % (Auto) 11.8 H Eos % (Auto) 4.2 Baso % (Auto) 1.1 Neut # (Auto) 3.7 Lymph # (Auto) 1.6 Price # (Auto) 0.8 Eos # (Auto) 0.3 Baso # (Auto) 0.1 Immature Gran # (Auto) 0.0 PT INR Sodium Potassium Chloride Carbon Dioxide Anion Gap BUN Creatinine Estimated GFR (MDRD) BUN/Creatinine Ratio Glucose Calcium Magnesium Total Bilirubin AST ALT Alkaline Phosphatase Total Protein Albumin Globulin Albumin/Globulin Ratio Lipase Urine Color Yellow Urine Clarity Clear Urine pH 6.5 Ur Specific [place] 1.015 Urine Protein Negative Urine Glucose (UA) Negative Urine Ketones Negative Urine Blood Negative Urine Nitrite Negative Urine Bilirubin Negative Urine Urobilinogen 0.2 Ur Leukocyte Esterase Negative Urine Opiates Screen Negative Ur Oxycodone Screen Negative Urine Methadone Screen Negative Ur Propoxyphene Screen Negative Ur Barbiturates Screen Negative U Tricyclic Antidepress Positive H Ur Phencyclidine Scrn Negative Ur Amphetamine Screen Negative U Methamphetamines Scrn Negative U Benzodiazepines Scrn Positive H Urine Cocaine Screen Negative U Cannabinoids Screen Negative Plasma/Serum Alcohol SARS CoV-2 RNA Rapid BATSHEVA 12/05/21 12/05/21 12/06/21 04:58 14:07 04:57 WBC 5.70 RBC 4.26 L Hgb 14.0 Hct 40.2 L MCV 94.4 H MCH 32.9 H MCHC 34.8 RDW Coeff of Emiliano 13.4 Plt Count 136 L Immature Gran % (Auto) 0.2 Neut % (Auto) 54.6 Lymph % (Auto) 27.5 Price % (Auto) 11.2 H Eos % (Auto) 4.9 Baso % (Auto) 1.6 Neut # (Auto) 3.1 Lymph # (Auto) 1.6 Price # (Auto) 0.6 Eos # (Auto) 0.3 Baso # (Auto) 0.1 Immature Gran # (Auto) 0.0 PT INR Sodium 138.1 Potassium 3.71 Chloride 106.7 Carbon Dioxide 27.7 Anion Gap 7.41 BUN 6.1 L Creatinine 0.61 Estimated GFR (MDRD) 152.00 BUN/Creatinine Ratio 10.00 Glucose 108.4 H Calcium 8.85 Magnesium 1.73 Total Bilirubin 0.60 AST 87.8 H D ALT 84.4 H Alkaline Phosphatase 79.3 Total Protein 5.93 L Albumin 3.41 L Globulin 2.52 Albumin/Globulin Ratio 1.35 Lipase Urine Color Urine Clarity Urine pH Ur Specific [place] Urine Protein Urine Glucose (UA) Urine Ketones Urine Blood Urine Nitrite Urine Bilirubin Urine Urobilinogen Ur Leukocyte Esterase Urine Opiates Screen Ur Oxycodone Screen Urine Methadone Screen Ur Propoxyphene Screen Ur Barbiturates Screen U Tricyclic Antidepress Ur Phencyclidine Scrn Ur Amphetamine Screen U Methamphetamines Scrn U Benzodiazepines Scrn Urine Cocaine Screen U Cannabinoids Screen Plasma/Serum Alcohol SARS CoV-2 RNA Rapid BATSHEVA 12/06/21 12/07/21 04:57 04:50 WBC RBC Hgb Hct MCV MCH MCHC RDW Coeff of Emiliano Plt Count Immature Gran % (Auto) Neut % (Auto) Lymph % (Auto) Price % (Auto) Eos % (Auto) Baso % (Auto) Neut # (Auto) Lymph # (Auto) Price # (Auto) Eos # (Auto) Baso # (Auto) Immature Gran # (Auto) PT INR Sodium 138.2 137.8 Potassium 3.96 3.91 Chloride 109.3 H 106.5 Carbon Dioxide 24.0 27.8 Anion Gap 8.86 7.41 BUN 3.5 L 3.2 L Creatinine 0.57 L 0.62 Estimated GFR (MDRD) 165.00 149.00 BUN/Creatinine Ratio 6.14 5.16 Glucose 90.9 96.6 Calcium 8.94 9.12 Magnesium 1.78 1.85 Total Bilirubin 0.29 AST 63.6 H ALT 72.8 H Alkaline Phosphatase 91.7 Total Protein 5.95 L Albumin 3.40 L Globulin 2.55 Albumin/Globulin Ratio 1.33 Lipase Urine Color Urine Clarity Urine pH Ur Specific [place] Urine Protein Urine Glucose (UA) Urine Ketones Urine Blood Urine Nitrite Urine Bilirubin Urine Urobilinogen Ur Leukocyte Esterase Urine Opiates Screen Ur Oxycodone Screen Urine Methadone Screen Ur Propoxyphene Screen Ur Barbiturates Screen U Tricyclic Antidepress Ur Phencyclidine Scrn Ur Amphetamine Screen U Methamphetamines Scrn U Benzodiazepines Scrn Urine Cocaine Screen U Cannabinoids Screen Plasma/Serum Alcohol SARS CoV-2 RNA Rapid BATSHEVA No imaging studies. Education Provided to Patient and Family: Per staff services manager Follow-ups: PCP and alcohol treatment program [facility] Discharge Disposition: Home Hospital Course: Chronic alcoholic had just stopped drinking, interested in detox. Hx withdrawal seizures in the past. GI distress from withdrawal, nausea and vomiting and low K. Treated with IVF, nausea med, benzo med. K corrected. Has persistent elevated LFT due to alcohol abuse. After 3 d. felt better, ask to be d/c home. Says he will work on alcoholism issue himself and find his own outpatient treatment facility. Plan: Discharge home with outpatient follow-up with PCP and alcohol treatment program of his choosing. This discharge done with a [id number] exam with all documentation requiring 45 minutes.
== END 2021-12-07 15:15 | disposition home or self-care (01) | DRG 897 ==
LOC: ED 12:26 → MEDSURG A 15:13
PROVIDERS: ADMIT Surgery; ATTEND Emergency Medicine
DX: E87.6 Hypokalemia; R10.11 Right upper quadrant pain; R74.01 Elevation of levels of liver transaminase levels; F17.210 Nicotine dependence, cigarettes, uncomplicated; R11.2 Nausea with vomiting, unspecified; F10.20 Alcohol dependence, uncomplicated; Z20.822 Contact with and (suspected) exposure to COVID-19; F10.239 Alcohol dependence with withdrawal, unspecified; Z79.899 Other long term (current) drug therapy; Z51.81 Encounter for therapeutic drug level monitoring